=== PATIENT | male | born 1955 | race Caucasian/White ===

== ENCOUNTER 2023-01-08 08:59 | Day surgery (SDC) | payer MEDICARE, OTHER, SELFPAY ==
[2023-01-08] VITALS (16 sets, daily range): BP systolic 72–138; BP diastolic 45–97; PULSE 58–150; RESP 12–20; TEMP 36.1–37.1; O2SAT 90–100
[2023-01-08] MEDS: LACTATED RINGERS 1000 ML 1,000 ML 100 ML IV ×2 (09:30→15:49)
--- NOTE | 2023-01-08 09:38 | SUR.PREOP ---
Patient provided home covid negative results to RN.
[2023-01-08] MEDS: SODIUM CHLORIDE 0.9 % (FLUSH) 10 ML SYRINGE IVF (10:01)
--- NOTE | 2023-01-08 10:46 | W.ANESCHARGE ---
Anesthesia Charges Start Date/Time Anesthesia Start Date: 01/08/23 Anesthesia Start Time: 12:03 Stop Date/Time Anesthesia Stop Date: 01/08/23 Anesthesia Stop Time: 13:17
--- NOTE | 2023-01-08 13:50 | SUR.OPER ---
second timeout was done @ 3859
[2023-01-08] MEDS: BUPIVACAINE LIPOSOME 133 MG/10 ML INJ INFILTRATI (14:08)
--- NOTE | 2023-01-08 14:17 | W.ANESCHARGE ---
Anesthesia Charges Start Date/Time Anesthesia Start Date: 01/08/23 Anesthesia Start Time: 12:03 Stop Date/Time Anesthesia Stop Date: 01/08/23 Anesthesia Stop Time: 13:17
[2023-01-08] MEDS: ALBUTEROL SULFATE 2.5 MG/3 ML VIAL.NEB NEB (14:25)
--- NOTE | 2023-01-08 14:30 | P.GSOP_ITS ---
Operative Note Date of procedure: 01/08/23 Pre-op diagnosis: 1. Symptomatic enlarged internal and external hemorrhoids. 2. Personal History of polyps with colonoscopy more than 15 years ago. Post-op diagnosis: Same Type of Procedure: 1. Colonoscopy. See [facility] report. 2. Two quadrant hemorrhoidectomy. Indications: 67-year-old male was seen in clinic with complaints of enlarged hemorrhoidal tissue and seepage of mucus from his anus. Patient was seen in clinic on multiple occasions and complained of needing to wear pads to collect mucus. Sometimes patient put toilet paper to collect the drainage. He also occasionally noticed dark bleeding after wiping after bowel movements. High- fiber diet was recommended and patient was compliant with the diet. Patient denied constipation. On clinical exam patient had redundant external and internal hemorrhoidal tissue in 3 quadrants with the largest redundancy on the right side. The right anterior hemorrhoid had friable tissue attached to the external hemorrhoid which was possibly a polyp versus friable external hemorrhoidal skin tag. Given patient's symptoms and his physical exam, 2 quadrant hemorrhoidectomy was recommended. The procedure was discussed in detail. The risks associated procedure including infection, bleeding, risk of incontinence, and nonresolution of his symptoms were all discussed with the patient, he agreed to proceed. Patient was also due for colonoscopy and requested the colonoscopy to be performed in the operating room. Procedure Description: After discussing the risks and benefits of the procedure, the patient signed informed consent.? We first proceeded with colonoscopy. Please see detailed report in [facility]. After the colonoscopy was performed, spinal anesthesia was administered. Patient was placed in the prone position with all pressure points padded. The operative site was then prepped and draped in the usual sterile fashion.? A time-out was then performed. External examination, digital rectal examination, and anoscopic examination were all done and revealed significantly redundant internal and external hemorrhoidal tissue right anterior laterally, right posterior laterally, and left laterally. The plan was to perform a 2 quadrant hemorrhoidectomy. I first started with the right anterior lateral enlarged external hemorrhoid. An elliptical incision was made with a needle tip electrocautery from the anoderm up into the anal canal just above the dentate line. Careful dissection of the hemorrhoid complex was done in the plane between the internal anal sphincter and the submucosal vascular plexus up to just above the dentate line in each quadrant described above. Having established the proper plane, the hemorrhoidal tissue was then excised with the Ligasure device and sent to Pathology for analysis. The friable tissue attached to the external hemorrhoid was sent to pathology to rule out a polyp. Care was taken to preserve mucosa for a tension-free closure. The internal sphincter fibers were visualized at the base of the wound and were intact. The wound was closed in a running locked manner starting at the apex (proximal aspect of elliptical excision) with 3-0 chromic suture, coming out to the anoderm and then running back up in a simple fashion and tying down at the apex. Hemostasis was excellent. I similarly excised right posterior lateral enlarged external hemorrhoid. During the dissection of the submucosal plexus, dilated vasculature was noted. This incision was similarly closed with 3-0 chromic. A mixture of bupivacaine and Exparel was injected for bilateral pudendal nerve block and around the anus. No bleeding was identified at the end of the proced ure. Gauze was placed outside of the anus and mesh panties were placed. ? The patient was then woken and transported to the recovery area in stable condition. ? The patient tolerated the procedure well. Findings: Multiple polyps were found during colonoscopy and removed. Two quadrant hemorrhoidectomy was performed. Only 1 enlarged hemorrhoid with attached friable tissue concerning for possible polyp was sent to pathology. Anesthesia: MAC and spinal Surgeon: Lou Carter MD Estimated blood loss (mL): 10 Additional Specimen Information: 1. Multiple polyps removed during colonoscopy. See additional report. 2. External hemorrhoid. Condition: stable Disposition: PACU
--- NOTE | 2023-01-08 15:20 | CRLHL7_ITS ---
For Patients: As a result of the Century Cures Act, medical imaging exams and procedure reports are released immediately into your electronic medical record. You may view this report before your referring provider. If you have questions, please contact your health care provider. INDICATION: Shortness of breath. TECHNIQUE: Chest 1 views. COMPARISON: None. FINDINGS: Cardiovascular and mediastinum: Prominent cardiac silhouette despite portable technique. Uncoiled thoracic aorta. Lungs and pleural spaces: The lungs are clear. No pleural effusion or pneumothorax. Bones and soft tissues: Unremarkable for age. IMPRESSION: No evidence of an acute pulmonary process. Dictated by Randell Armstrong MD @ 01/08/2023 3:55:12 PM (Electronically Signed)
--- NOTE | 2023-01-08 15:36 | SUR.PHASEII ---
pt arrived from PACU with shortness of breath and increased HR, HR decreased w/o intervention, breathing improved. SKEIN WINDER and MD at bedside Chest Xray ordered and EKG completed
[2023-01-08] MEDS: HYDROCODONE-ACETAMIN 5-325 MG 1 TAB PO (15:45)
== END 2023-01-08 16:21 | disposition home or self-care (01) ==
PROVIDERS: PCP Family Medicine; Visit Provider Surgery
PROC: (CPT 46260; principal; 2023-01-08 10:45)
PROC: 0DJD8ZZ Inspection of Lower Intestinal Tract, Via Natural or Artificial Opening Endoscopic (ICD-10-PCS; CPT 45378; 2023-01-08 10:45)
DX: K64.8 Other hemorrhoids (principal); K64.4 Residual hemorrhoidal skin tags; Z86.010 Personal history of colon polyps; D12.0 Benign neoplasm of cecum; D12.2 Benign neoplasm of ascending colon; D12.3 Benign neoplasm of transverse colon
CPT/HCPCS: 46260; 00902; 45381; 45385; 71045; 88304; 88305; 93005; 94640; A9270; C9290; J1100; J2250; J2370; J2405; J2704; J3010; J7120

== ENCOUNTER 2023-10-17 09:12 | Outpatient (CLI) | payer MEDICARE, OTHER, SELFPAY ==
--- NOTE | 2023-10-17 10:55 | W.ANESCHARGE ---
Anesthesia Charges Start Date/Time Anesthesia Start Date: 10/17/23 Anesthesia Start Time: 10:00 Stop Date/Time Anesthesia Stop Date: 10/17/23 Anesthesia Stop Time: 10:52
--- NOTE | 2023-10-17 11:13 | W.ANESCHARGE ---
Anesthesia Charges Start Date/Time Anesthesia Start Date: 10/17/23 Anesthesia Start Time: 10:00 Stop Date/Time Anesthesia Stop Date: 10/17/23 Anesthesia Stop Time: 10:52
== END 2023-10-17 09:13 | disposition home or self-care (01) ==
LOC: OP CLINIC 09:12
PROVIDERS: PCP Family Medicine; Visit Provider Surgery
DX: Z86.010 Personal history of colon polyps (principal); K63.5 Polyp of colon; Z98.890 Other specified postprocedural states; Z09 Encounter for follow-up examination after completed treatment for conditions other than malignant neoplasm
CPT/HCPCS: 00811; 45380; 45385; J2704